=== PATIENT | female | born 2000 ===

== ENCOUNTER 2025-04-25 05:08 | Day surgery (SDC) | payer OTHER ==
[2025-04-25] MEDS ORDERED: BUPIVACAINE HCL/MPF 0.5% 30ML VIAL ONE (07:05)
[2025-04-25] MEDS ORDERED: LIDOCAINE HCL 1%/EPINEPHRINE 20ML VIAL IJ ONE (07:05)
[2025-04-25] MEDS ORDERED: CEFAZOLIN SODIUM 1,000 MG VIAL ONE (07:05)
[2025-04-25] MEDS ORDERED: TRAMADOL HCL50 MG PO (07:40)
[2025-04-25] MEDS ORDERED: MIRALAX17 GM PO (07:40)
[2025-04-25] MEDS ORDERED: TYLENOL ARTHRI650 MG PO (07:40)
[2025-04-25] MEDS ORDERED: MORPHINE SULFATE 4 MG/ML VIAL IV ONE (10:00)
[2025-04-25] MEDS ORDERED: ONDANSETRON HCL 2 MG/ML VIAL IV ONE (10:00)
[2025-04-25] MEDS ORDERED: ONDANSETRON HCL 2 MG/ML VIAL ONE (10:03)
== END 2025-04-25 12:00 | disposition home or self-care (01) ==
LOC: CIR.AMB 05:08
PROVIDERS: ATTEND Surgery
DX: K80.10 Calculus of gallbladder with chronic cholecystitis without obstruction (principal); Z88.6 Allergy status to analgesic agent